=== PATIENT | female | born 1940 | race Caucasian/White ===

== ENCOUNTER 2017-04-20 10:39 | Emergency (ER) | payer MEDICARE, BC, OTHER ==
[~2017-04-20] VITALS: Ht 167.6 cm; Wt 104.5 kg
[2017-04-20 10:45] VITALS: TEMP 98.2
[2017-04-20 11:14] LABS: BASO % 0.5 % (0.0-2.0); EOS # 0.2 (0.0-0.7); EOS % 2.7 % (0-4.0); GRAN # 4.1 (1.4-6.5); GRAN % 62.2 % (42.2-75.2); HEMATOCRIT 33.4 % (37.0-47.0); HEMOGLOBIN 10.1 g/dl (12.5-16.0); LYMPH # 1.8 (1.2-3.4); MEAN CELL VOLUME 89 fl (80.0-100.0); MEAN CORPUSCULAR HEMOGLOBIN 27 pg (27.0-31.0); MEAN CORPUSCULAR HGB CONC 30 g/dl (33.0-37.0); MEAN PLATELET VOLUME 9.6 fl (7.4-10.4); MONO # 0.5 (0.1-0.6); MONO % 7.1 % (1.7-9.3); PLATELET COUNT 278 K/mm3 (130-400); RED BLOOD COUNT 3.75 M/mm3 (4.10-5.30); WHITE BLOOD COUNT 6.6 K/mm3 (4.8-10.8)
[2017-04-20 11:32] LABS: ADJUSTED CALCIUM 8.8 mg/dL (8.4-10.2); ALANINE AMINOTRANSFERASE 27 U/L (9-52); ALBUMIN 3.8 gm/dL (3.5-5.0); ALKALINE PHOSPHATASE 65 U/L (50-136); ANION GAP 9 mmol/L (7-16); BILIRUBIN,TOTAL 0.5 mg/dL (0.0-1.0); BLOOD UREA NITROGEN 18 mg/dL (7-17); CALCIUM 8.6 mg/dL (8.4-10.2); CARBON DIOXIDE 27 mmol/L (22-30); CHLORIDE 103 mmol/L (98-107); CREATININE, serum 0.86 mg/dL (0.52-1.25); GLUCOSE 118 mg/dL (74-106); POTASSIUM 4.4 mmol/L (3.4-5.0); SODIUM 139 mmol/L (137-145); TOTAL PROTEIN 7.1 gm/dL (6.4-8.2)
[2017-04-20 11:44] LABS: TROPONIN-I < 0.012 ng/mL (0.000-0.034)
[2017-04-20] MEDS ORDERED: PROAIR HFA0.09 MG/AC IH (12:26)
[2017-04-20] MEDS ORDERED: ZITHROMAX 250M250 MG PO (12:26)
[2017-04-20] MEDS ORDERED: PREDNISONE20 MG PO (12:26)
[2017-04-20] MEDS ORDERED: CELEXA 20MG20 MG/TAB PO (13:18)
[2017-04-20] MEDS ORDERED: PRAVACHOL 40MG40 MG PO (13:19)
[2017-04-20] MEDS ORDERED: PLAVIX 75MG TAB75 MG PO (13:19)
[2017-04-20] MEDS ORDERED: TOPROL XL 25MG25 MG PO (13:19)
[2017-04-20] MEDS ORDERED: NITROSTAT0.4 MG/TAB SL (13:20)
[2017-04-20] MEDS ORDERED: PRINIVIL10 MG PO (13:20)
[2017-04-20 14:39] VITALS: BP 135/52; PULSE 58
== END 2017-04-20 14:27 | disposition home or self-care (01) ==
LOC: COL.ER 10:39
PROVIDERS: Emergency Medicine
DX: J20.9 Acute bronchitis, unspecified (principal)
CPT/HCPCS: J7512